=== PATIENT | female | born 1930 | race Caucasian/White ===

== ENCOUNTER 2017-01-16 10:31 | Emergency (ER) | payer MEDICARE, OTHER ==
[2017-01-16 14:18] LABS: HEMOGLOBIN 11.5 gm/dl (12.3-15.3); RED BLOOD COUNT 4.77 M/UL (4.00-5.10); WHITE BLOOD COUNT 3.8 K/UL (4.5-11.0)
== END 2017-01-16 17:05 | disposition home or self-care (01) ==
LOC: ER1 10:31
PROVIDERS: Physician Assistant
DX: N28.9 Disorder of kidney and ureter, unspecified (principal); R30.0 Dysuria; R31.29 Other microscopic hematuria; I10 Essential (primary) hypertension; I51.9 Heart disease, unspecified; E07.9 Disorder of thyroid, unspecified; Z79.82 Long term (current) use of aspirin; Z79.899 Other long term (current) drug therapy
CPT/HCPCS: 36415; 80053; 81001; 85025; 87086; 99284; J7050

== ENCOUNTER 2017-02-03 11:54 | Emergency (ER) | payer MEDICARE, OTHER ==
[2017-02-03 17:37] LABS: HEMOGLOBIN 10.2 gm/dl (12.3-15.3); RED BLOOD COUNT 4.13 M/UL (4.00-5.10); WHITE BLOOD COUNT 5.1 K/UL (4.5-11.0)
== END 2017-02-03 21:20 | disposition home or self-care (01) ==
LOC: ER1 11:54
PROVIDERS: Student in an Organized Health Care Education/Training Program
DX: K57.90 Diverticulosis of intestine, part unspecified, without perforation or abscess without bleeding (principal); M51.36 Other intervertebral disc degeneration, lumbar region; D64.9 Anemia, unspecified; I10 Essential (primary) hypertension; Z79.82 Long term (current) use of aspirin; Z79.899 Other long term (current) drug therapy; Z90.49 Acquired absence of other specified parts of digestive tract
CPT/HCPCS: 36415; 72131; 80053; 81001; 83690; 85025; 99284; Q9962